=== PATIENT | male | born 1990 | race American Indian/Alaskan Native ===

== ENCOUNTER 2020-06-23 06:57 | Emergency (ER) | payer SELFPAY ==
[2020-06-23 07:18] VITALS: BP 153/105
--- NOTE | 2020-06-23 07:32 | Emergency Department Report ---
Chief Complaint: Dental/Oral Stated Complaint: LEFT JAW PAIN FROM TOOTH Time Seen by Provider: 06/23/20 07:26 - HPI History of Present Illness: 29-year-old -Indian male presents to the emergency room complaining of a toothache and jaw pain that started last night. Patient has been suffering from this since last September 2019. Patient states he is aware that he has some dental work but has been following up by cosmetic dentist. Patient states that he took ibuprofen last night. Patient denies any trauma. - Exam Vital Signs: Vital Signs 06/23/20 07:14 Temperature 98.9 F Pulse Rate 79 Respiratory 20 Rate Blood Pressure 153/105 O2 Sat by Pulse 96 Oximetry Physical Exam: Patient is alert and oriented x3 no acute distress nontoxic in appearance HEENT oral mucosa is moist oropharynx patent left lower jaw few dental caries but no gingiva enlargement no abscesses appreciated no trismus able to open jaw full range of motion. No drooling speaking in complete sentences Ambulatory without difficulties MSE screening note: Focused history and physical exam performed. Due to findings the following was ordered: 29-year-old -Indian male presents to the emergency room complaining of a toothache and jaw pain that started last night. Patient has been suffering from this since last September 2019. Patient states he is aware that he has some dental work but has been following up by cosmetic dentist. Patient states that he took ibuprofen last night. Patient denies any trauma. Discussed with patient to continue with Tylenol or ibuprofen and to follow-up with a dentist. ED Disposition for MSE Disposition: Z- MED SCREENING EXAM-LEFT Is pt being admited?: No Does the pt Need Aspirin: No Condition: Stable Additional Instructions: recommend to follow up with a dentist. Tylenol and Ibuprofen for pain. Referrals: [facility] [Outside] - 3-5 Days [facility] [Outside] - 3-5 Days Forms: Work/School Release Form(ED)
== END 2020-06-23 07:52 | disposition left against medical advice (07) ==
LOC: ED 06:57
DX: K08.89 Other specified disorders of teeth and supporting structures (principal); Z53.21 Procedure and treatment not carried out due to patient leaving prior to being seen by health care provider